=== PATIENT | male | born 1985 | race Two or more races ===

== ENCOUNTER 2022-09-04 01:01 | Emergency (ER) | payer SELFPAY ==
[~2022-09-04] VITALS: Ht 154.9 cm; Wt 65.5 kg
[2022-09-04 01:21] VITALS: BP 105/65
[2022-09-04] MEDS ORDERED: KETOROLAC TROMETHAMINE 30 MG/ML VIAL IM ONE (03:00)
[2022-09-04] MEDS ORDERED: ACETAMINOPHEN 500 MG TABLET PO ONE (03:00)
[2022-09-04] MEDS ORDERED: DOXYCYCLINE HYCLATE 100 MG TABLET PO ONE (03:00)
[2022-09-04] MEDS ORDERED: IBUP-1492 PO (04:59)
[2022-09-04] MEDS ORDERED: DOXY-354 PO (04:59)
== END 2022-09-04 05:09 | disposition home or self-care (01) ==
LOC: EMS 01:07
DX: L03.211 Cellulitis of face (principal)
CPT/HCPCS: 99283; 96372; J1885

== ENCOUNTER 2023-05-23 07:50 | Day surgery (SDC) | payer OTHER ==
[~2023-05-23] VITALS: Ht 154.9 cm; Wt 71.3 kg
[~2023-05-23 07:50] MED LIST: DOXY-354 PO; IBUP-1492 PO; SODIUM CHLORIDE 0.9% 1,000 ML ONE
[2023-05-23] MEDS: SODIUM CHLORIDE 0.9% 1,000 ML IV ONE (08:38)
[2023-05-23 09:36] LABS: GLUCOMETER DEV NAME(LOC) SDS.; GLUCOSE,POINT OF CARE 188 MG/DL (70-110)
[2023-05-23] MEDS ORDERED: INSU3INS5 SQ (09:44)
[2023-05-23] MEDS ORDERED: DAPA5TAB PO (09:44)
[2023-05-23] MEDS ORDERED: CYAN-53 PO (09:44)
[2023-05-23] MEDS ORDERED: INSU10VI3 SQ (09:44)
[2023-05-23] MEDS ORDERED: FERR325T23 PO (09:44)
[2023-05-23] MEDS ORDERED: PROPOFOL 1% 20 ML VIAL IVP ONE (12:00)
[2023-05-23] MEDS ORDERED: LIDOCAINE/PF 2% 5 ML VIAL IM ONE (12:00)
== END 2023-05-23 11:10 | disposition home or self-care (01) ==
LOC: SURGERY 07:50
PROVIDERS: ATTEND Internal Medicine Gastroenterology
DX: K21.00 Gastro-esophageal reflux disease with esophagitis, without bleeding (principal); K31.84 Gastroparesis; D64.9 Anemia, unspecified; E10.9 Type 1 diabetes mellitus without complications; Z79.899 Other long term (current) drug therapy; Z98.890 Other specified postprocedural states
CPT/HCPCS: 43239; 82962; C1769; J2704; J3490; J7030

== ENCOUNTER 2023-06-13 06:28 | Day surgery (SDC) | payer OTHER ==
[~2023-06-13] VITALS: Ht 154.9 cm; Wt 71.3 kg
[~2023-06-13 06:28] MED LIST changes: +CYAN-53 PO; +DAPA5TAB PO; -DOXY-354 PO; +FERR325T23 PO; -IBUP-1492 PO; +INSU10VI3 SQ; +INSU3INS5 SQ
[2023-06-13] MEDS ORDERED: LIDOCAINE/PF 2% 5 ML SYRINGE IVP ONE (06:29)
[2023-06-13] MEDS ORDERED: PROPOFOL 1% ISO-OSM 1000 MG/100 ML BOTTLE IV ONE (06:29)
[2023-06-13] MEDS: SODIUM CHLORIDE 0.9% 1,000 ML IV ONE (07:09)
[2023-06-13 07:26] LABS: GLUCOMETER DEV NAME(LOC) SDS.; GLUCOSE,POINT OF CARE 139 MG/DL (70-110)
== END 2023-06-13 10:35 | disposition home or self-care (01) ==
LOC: SURGERY 06:28
PROVIDERS: ATTEND Internal Medicine Gastroenterology
DX: R19.7 Diarrhea, unspecified (principal); K64.8 Other hemorrhoids; D64.9 Anemia, unspecified; K21.9 Gastro-esophageal reflux disease without esophagitis; E11.9 Type 2 diabetes mellitus without complications; Z79.4 Long term (current) use of insulin; Z79.899 Other long term (current) drug therapy
CPT/HCPCS: 45380; 82962; 88305; C1769; J2704; J3490; J7030